=== PATIENT | female | born 1980 | race Caucasian/White ===

== ENCOUNTER 2018-01-24 08:03 | Emergency (ER) | payer BC ==
[~2018-01-24] VITALS: Ht 167.6 cm; Wt 56.7 kg
[2018-01-24 08:06] VITALS: BP_SYST 135
[2018-01-24] MEDS ORDERED: EPINEPHrine 1 MG/ML AMP SUBCUT ONE (08:30)
[2018-01-24] MEDS ORDERED: methylPREDNISolone SOD SUCC/PF 62.5 MG/ML VIAL IVP ONE (08:30)
[2018-01-24] MEDS ORDERED: DIPHENHYDRAMINE INJ 50 MG/ML VIAL IVP ONE (08:30)
[2018-01-24 09:27] VITALS: BP_SYST 135
== END 2018-01-24 09:27 | disposition home or self-care (01) ==
LOC: SED 08:03
DX: T78.1XXA Other adverse food reactions, not elsewhere classified, initial encounter (principal); T78.3XXA Angioneurotic edema, initial encounter; X58.XXXA Exposure to other specified factors, initial encounter
CPT/HCPCS: 96372; 96374; 96375; 99284; J0171; J1200; J2930